=== PATIENT | female | born 1980 | race Caucasian/White ===

== ENCOUNTER 2018-03-26 01:44 | Emergency (ER) | payer OTHER | END 2018-03-26 06:24 | disposition other institution (70) | LOC: ED 01:44 | DX: Z02.89 Encounter for other administrative examinations (principal) ==

== ENCOUNTER 2018-03-26 01:44 | Emergency (ER) | payer SELFPAY ==
[2018-03-26 06:24] VITALS: BP 130/78
== END 2018-03-26 06:24 | disposition other institution (70) ==
LOC: ED 01:44
DX: R10.9 Unspecified abdominal pain (principal); R06.00 Dyspnea, unspecified; J45.909 Unspecified asthma, uncomplicated; Z88.0 Allergy status to penicillin
CPT/HCPCS: Q0162

== ENCOUNTER 2019-04-29 06:18 | Emergency (ER) | payer OTHER ==
[~2019-04-29] VITALS: Ht 154.9 cm; Wt 65.3 kg
[2019-04-29 06:24] VITALS: Ht 154.9 cm; Wt 65.3 kg
[2019-04-29 08:14] LABS: BASOPHIL % 0.5 % (0-2)
[2019-04-29 08:16] LABS: PLATELET COUNT 425 x10^3mcL (130-400); RED CELL DISTRIBUTION WIDTH 18.6 % (11.5-14.5)
[2019-04-29 08:17] LABS: rbc morphology (normal/abnorm) ABNORMAL (NORMAL)
[2019-04-29 08:22] LABS: AMPHETAMINE QUAL UR POSITIVE (See below)
[2019-04-29 08:27] LABS: CREATININE SERUM 0.6 mg/dL (0.6-1.0); GFR1 > 60 mL/min; SODIUM SERUM 141 mmol/L (136-145)
[2019-04-29 08:30] LABS: microscopic required? YES; urine erythrocyte NEGATIVE (NEGATIVE)
[2019-04-29 08:34] LABS: CALCIUM 9.2 mg/dL (8.5-10.1); CARBON DIOXIDE 28.1 mmol/L (21-32); CHLORIDE SERUM 103 mmol/L (98-107); GLUCOSE SERUM 79 mg/dL (74-106); POTASSIUM SERUM 3.4 mmol/L (3.5-5.1)
[2019-04-29 08:39] LABS: ALBUMIN 3.9 g/dL (3.4-5.0); ALKALINE PHOSPHATASE 70 U/L (46-116); ALT/SGPT 13 U/L (14-59); AST/SGOT 8 U/L (15-37); CHOLESTEROL 160 mg/dL (<200); HDL CHOLESTEROL 57 mg/dL (40-60); LIPASE 225 IU/L (73-393); MAGNESIUM 2.1 mg/dL (1.8-2.4); T4(THYROXINE) 9.8 ug/dL (4.7-13.3); TOTAL PROTEIN, SERUM 7.2 g/dL (6.4-8.2)
[2019-04-29 09:41] VITALS: BP 114/77
== END 2019-04-29 10:24 | disposition home or self-care (01) ==
LOC: ED 06:18
PROVIDERS: Emergency Medicine
DX: N39.0 Urinary tract infection, site not specified (principal); F17.210 Nicotine dependence, cigarettes, uncomplicated; D64.9 Anemia, unspecified; F41.9 Anxiety disorder, unspecified; J45.909 Unspecified asthma, uncomplicated; Z88.0 Allergy status to penicillin; Z98.890 Other specified postprocedural states
CPT/HCPCS: 36415; 82962; 99406; G0480